=== PATIENT | male | born 1955 | race Caucasian/White ===

== ENCOUNTER 2016-12-17 11:51 | Inpatient (IN) | payer OTHER ==
[~2016-12-17] VITALS: Ht 188 cm; Wt 93.0 kg
[2016-12-17] MEDS ORDERED: ASPIRIN 325 MG TAB PO STA (12:28)
[2016-12-17] MEDS ORDERED: NITROGLYCERIN 2% 1 GM OINT PKT TD STA (12:28)
[2016-12-17] MEDS ORDERED: NITROGLYCERIN (SL) 0.4 MG TAB SL PRN (12:30)
--- NOTE | 2016-12-17 12:35 | ERA ---
ER Documentation Chief Complaint Date/Time DATE: 12/17/16 TIME: 12:32 Chief Complaint CP ONSET 1 HR RAD LEFT ARM HPI This is 61-year-old male who was working out on the elliptical after a 3 week hiatus this morning at around 10 AM. The patient states he had a bulletproof coffee at 9 AM which does not usually have, followed by about one third of a dose of her pre-workout formula but does contain a stimulant. He said he got an elliptical at level 1 low speed started having a tightness in his anterior left chest with some slight radiation to the left shoulder after about 10 minutes. He states he got off of the elliptical and the chest pressure relieved. He said he waited about 10 minutes and got on the elliptical again and the pressure returned once again. Probably got off of the machine and the pain persisted for about another 45 minutes to an hour. He says the pressure is nearly gone now. He had a little bit of shortness of breath no palpitations syncope dizziness. Patient is on testosterone therapy every 2 weeks by injection. His only medical problem he states is borderline hypertension ROS All systems reviewed and are negative except as per history of present illness. Medications Home Meds Reported Medications Indomethacin* (Indocin*) 25 Mg Capsule, 25 MG PO BID, CAP 12/17/16 Methocarbamol* (Methocarbamol*) 750 Mg Tablet, 750 MG PO BID Y for MUSCLE SPASMS , TAB 12/17/16 Allergies Allergies: Coded Allergies: No Known Allergy (Unverified , 12/17/16) PMhx/Soc History of Surgery: No Anesthesia Reaction: No Hx Neurological Disorder: No Hx Respiratory Disorders: No Hx Cardiac Disorders: No Hx Psychiatric Problems: No Hx Miscellaneous Medical Probl: Yes (HIGH CHOLESTEROL) Hx Alcohol Use: No Hx Substance Use: No Hx Tobacco Use: Yes Smoking Status: Current some day smoker FmHx Family History: No coronary disease Physical Exam Vitals Vital Signs Date Time Temp Pulse Resp B/P Pulse Ox O2 Delivery O2 Flow Rate FiO2 12/17/16 14:08 61 18 126/79 100 Room Air 2.0 12/17/16 12:54 Nasal Cannula 2 12/17/16 11:57 98.1 77 18 197/95 99 Physical Exam Const: Well-developed, well-nourished Head: Atraumatic, normocephalic Eyes: Normal Conjunctiva, PERRLA, EOMI, normal sclera, no nystagmus ENT: Normal External Ears, Nose and Mouth, moist mucus membranes. Neck: Full range of motion. No meningismus, no lymphadenopathy. Resp: Clear to auscultation bilaterally, no wheezing, rhonchi, rales Cardio: Regular rate and rhythm, no murmurs, S1 S2 present, no reproducible pain to palpation or twisting of the trunk Abd: Soft, non tender x 4, non distended. Normal bowel sounds, no guarding or rebound, no pulsitile abdominal masses or bruits Skin: No petechiae or rashes, no ecchymosis , no maculopapular rash Back: No midline or flank tenderness Ext: No cyanosis, or edema, FROM x 4, normal inspection, neurovascularly intact x 4 Neur: Awake and alert, STR 5/5 x 4, sensation intact x 4, no focal findings, cerebellum intact Psych: Normal Mood and Affect Result Diagram: 12/17/16 1230 12/17/16 1230 Results 24 hrs Laboratory Tests Test 12/17/16 12:30 White Blood Count 12.510^3/ul Red Blood Count 5.6510^6/ul Hemoglobin 17.5g/dl Hematocrit 51.6% Mean Corpuscular Volume 91.3fl Mean Corpuscular Hemoglobin 31.0pg Mean Corpuscular Hemoglobin Concent 33.9g/dl Red Cell Distribution Width 12.4% Platelet Count 68781^3/UL Mean Platelet Volume 10.2fl Neutrophils % 82.7% Lymphocytes % 9.0% Monocytes % 7.0% Eosinophils % 0.5% Basophils % 0.3% Nucleated Red Blood Cells % 0.0/100WBC Neutrophils # 10.410^3/ul Lymphocytes # 1.110^3/ul Monocytes # 0.910^3/ul Eosinophils # 0.110^3/ul Basophils # 0.010^3/ul Nucleated Red Blood Cells # 0.010^3/ul Prothrombin Time 12.9Sec Prothrombin Time Ratio 1.0 INR International Normalized Ratio 0.97 Activated Partial Thromboplast Time 29.2Sec Sodium Level 136mmol/L Potassium Level 4.6mmol/L Chloride Level 98mmol/L Carbon Dioxide Level 28mmol/L Anion Gap 15 Blood Urea Nitrogen 26mg/dl Creatinine 1.11mg/dl Glucose Level 100mg/dl Calcium Level 9.3mg/dl Total Bilirubin 0.3mg/dl Direct Bilirubin 0.00mg/dl Indirect Bilirubin 0.3mg/dl Aspartate Amino Transf (AST/SGOT) 28IU/L Alanine Aminotransferase (ALT/SGPT) 40IU/L Alkaline Phosphatase 84IU/L Troponin I < 0.012ng/ml Total Protein 7.3g/dl Albumin 4.7g/dl Globulin 2.60g/dl Albumin/Globulin Ratio 1.80 Current Medications Medications (Trade) Dose Ordered Sig/Rowan Route PRN Reason Start Time Stop Time Status Last Admin Dose Admin Aspirin (Aspirin) 325 mg ONCE STAT PO 12/17/16 12:28 12/17/16 12:30 DC 12/17/16 12:39 Nitroglycerin (Nitroglycerin 2% Oint) 1 inch ONCE STAT TD 12/17/16 12:28 12/17/16 12:30 DC 12/17/16 12:39 Nitroglycerin (Nitroglycerin (Sl Tab) 0.4 Mg) 1 tab Q5M UP TO 3 DOSES PRN SL CHEST PAIN 12/17/16 12:30 Procedures/MDM EKG: Rate/Rhythm: Normal Sinus Rhythm,NL intervals QRS, ST, QT: NORMAL [place], QRS, QT] Impression: NORMAL EKG Patient's chest pain could be cardiac in origin or could be from elevated blood pressure due to the coffee and pre-workout formula. Regardless we will admit the patient for cardiac workup. Patient's symptoms are concerning for cardiac cause will require inpatient workup and continuous monitoring. Further w/u for ischemia, arrhythmia, PE or dissection will be deferred to the inpatient team. PROCEDURE: XR Chest. CLINICAL INDICATION: Chest Pain. TECHNIQUE: Single frontal view of the chest was obtained COMPARISON: None FINDINGS: The heart and mediastinum are within normal limits. The lungs are clear. There is no pleural effusion or pneumothorax. The bones and soft tissue show no acute change. IMPRESSION: No definite abnormalities are identified. RPTAT:AAJJ Physician Ivone Date Time Electronically viewed and signed by Baron Guzman Physician on 12/17/2016 14: 08 MC/ CC: SOURAV MEI DO Accepting Care Team: Current data and ongoing care discussed. Time: Time of admission Primary Provider: [XOXOXO] Consulting: [XOXOXO] Outstanding Data: none Departure Diagnosis: Primary Impression: Chest pain Qualified Code: R07.9 - Chest pain, unspecified type Condition: Stable SOURAV MEI DO Dec 17, 2016 12:35
[2016-12-17] MEDS ORDERED: METH750T2 PO (13:02)
[2016-12-17] MEDS ORDERED: INDO25CA25 PO (13:03)
[2016-12-17 13:09] LABS: ADD SCAN DIFF NO
[2016-12-17 13:14] LABS: BASOPHILS % 0.3 % (0.0-2.0); EOSINOPHILS # 0.1 10^3/ul (0.0-0.5); EOSINOPHILS % 0.5 % (0.0-7.0); HEMATOCRIT 51.6 % (42.0-52.0); HEMOGLOBIN 17.5 g/dl (14.0-18.0); LYMPHOCYTES # 1.1 10^3/ul (0.8-2.9); MEAN CORPUSCULAR HGB CONC 33.9 g/dl (32.0-37.0); MEAN CORPUSCULAR VOLUME 91.3 fl (82.0-101.0); MEAN PLATELET VOLUME 10.2 fl (7.4-10.4); MONOCYTE # 0.9 10^3/ul (0.3-0.9); NEUTROPHIL # 10.4 10^3/ul (1.6-7.5); NEUTROPHILS % 82.7 % (39.0-77.0); PLATELET COUNT 229 10^3/UL (140-415); RED BLOOD COUNT 5.65 10^6/ul (4.70-6.10); RED CELL DISTRIBUTION WIDTH 12.4 % (11.5-14.5); WHITE BLOOD COUNT 12.5 10^3/ul (4.8-10.8)
[2016-12-17 13:29] LABS: INR 0.97; PROTIME 12.9 Sec (12.2-14.2)
[2016-12-17 13:30] LABS: PARTIAL THROMBOPLASTIN TIME 29.2 Sec (25.0-35.0)
[2016-12-17 13:34] LABS: ALANINE AMINOTRANSFERASE 40 IU/L (13-69); ALBUMIN 4.7 g/dl (3.3-4.9); ALKALINE PHOSPHATASE 84 IU/L (42-121); ANION GAP 15 (8-16); ASPARTATE AMINO TRANSFERASE 28 IU/L (15-46); BILIRUBIN,INDIRECT 0.3 mg/dl (0-1.1); BILIRUBIN,TOTAL 0.3 mg/dl (0.2-1.3); BLOOD UREA NITROGEN 26 mg/dl (7-20); CALCIUM 9.3 mg/dl (8.4-10.2); CARBON DIOXIDE 28 mmol/L (21-31); CHLORIDE 98 mmol/L (97-110); CREATININE 1.11 mg/dl (0.61-1.24); GLUCOSE 100 mg/dl (70-220); POTASSIUM 4.6 mmol/L (3.5-5.1); SODIUM 136 mmol/L (135-144); TOTAL PROTEIN 7.3 g/dl (6.1-8.1)
[2016-12-17 13:47] LABS: TROPONIN-I < 0.012 ng/ml (0.00-0.12)
--- NOTE | 2016-12-17 14:09 | RADRPT ---
PROCEDURE: XR Chest. CLINICAL INDICATION: Chest Pain. TECHNIQUE: Single frontal view of the chest was obtained COMPARISON: None FINDINGS: The heart and mediastinum are within normal limits. The lungs are clear. There is no pleural effusion or pneumothorax. The bones and soft tissue show no acute change. IMPRESSION: No definite abnormalities are identified. RPTAT:AAJJ Baron Guzman Physician Date Time Electronically viewed and signed by Baron Guzman Physician on 12/17/2016 14:08 /
[2016-12-17] MEDS ORDERED: ACETAMINOPHEN 325 MG TAB PO PRN ×2 (15:00→16:30)
[2016-12-17] MEDS ORDERED: ONDANSETRON 4 MG INJ IV PRN ×2 (15:00→16:30)
[2016-12-17] MEDS ORDERED: SOD CHLORIDE 0.9% 1,000 ML IV SCH (16:01)
--- NOTE | 2016-12-17 16:01 | HP ---
Date/Time of Note Date/Time of Note DATE: 12/17/16 TIME: 15:49 Assessment/Plan VTE Prophylaxis VTE Prophylaxis Intervention: LMWH Lines/Catheters IV Catheter Type (from Nrsg): Saline Lock Assessment/Plan Chief Complaint/Hosp Course A/P 1) Chest Pain; ro ACS vs musculoskeletal vs reflex. Stable, admit to tele. 2) iRBB; echo/ stress. 3) MV Prolapse 4) Htn? 5) Tobacco/ Marijuana 6) Leukocytosis. Problems: HPI/ROS Admit Date/Time Admit Date/Time Hx of Present Illness CP- pressure lt upper chest, non radiating while on exercise machine. was able to continue exercising, but pain returned later. denies any chest wall injury/ travel. no syncope, dyspnea, edema, diaphoresis, or recent fever. Has been deconditioned for 3wks due to back issues, and just today went back to the gym. had coffee for the 1st time in a while, and a protein supplement just before heading to the gym. given asa/ntg in er with some benefit. ER- htn elevated. sr; irbb, abn p waves? Cardiac risks - age, htn, ntg/ asa use/ abn ekg? ROS Constitutional: no complaints Eyes: no complaints ENT: no complaints Respiratory: no complaints Cardiovascular: chest pain Gastrointestinal: no complaints Genitourinary: no complaints Musculoskeletal: back pain (chronic) Skin: no complaints Neurologic: no complaints Endocrine: no complaints Psychological: no complaints PMH/Family/Social Past Medical History HTN? Back pain/ spondylosis Marijuana Diverticulitis w vesicular fistula MV Prolapse Past Surgical History P colectomy w fistula/ bladder repair Tonsillectomy Family History Significant Family History: no pertinent family hx (no cancer, stroke, CAD) Social History Alcohol Use: none Smoking Status: Current some day smoker (& marijuana) Exam/Review of Systems Vital Signs Vitals Vital Signs Date Time Temp Pulse Resp B/P Pulse Ox O2 Delivery O2 Flow Rate FiO2 12/17/16 15:38 60 16 120/65 100 Room Air 12/17/16 14:08 2.0 12/17/16 11:57 98.1 Labs Result Diagram: 12/17/16 1230 12/17/16 1230 EDEN HERNANDEZ MD Dec 17, 2016 16:00
[2016-12-17] MEDS ORDERED: NITROGLYCERIN 0.1 MG/HR PATCH TRANSDERM ONE (16:30)
[2016-12-17] MEDS ORDERED: OXYCODONE/ACETAMINOPHEN (5/325) TAB PO PRN (16:30)
[2016-12-17] MEDS ORDERED: NACL 0.9% 3 ML SYG IV SCH (16:30)
[2016-12-17] MEDS ORDERED: DOCUSATE SODIUM 100 MG CAP PO PRN (16:30)
[2016-12-17 17:35] VITALS: Ht 188 cm; Wt 93.0 kg
[2016-12-17 20:11] VITALS: BP 109/59; RESP 18
[2016-12-17 20:12] VITALS: PULSE 65
[2016-12-17] MEDS: FAMOTIDINE 20 MG TAB PO SCH (20:42)
[2016-12-17] MEDS: ENOXAPARIN 100 MG/ML SYG SC SCH (20:44)
[2016-12-17] MEDS ORDERED: ATORVASTATIN 80 MG TAB PO ONE (22:52)
[2016-12-17 23:58] VITALS: BP 109/62; RESP 17
[2016-12-18] VITALS (48 sets, daily range): BP systolic 89–191; BP diastolic 51–93; PULSE 50–106; RESP 7–22
[2016-12-18 07:30] LABS: ADD SCAN DIFF NO
[2016-12-18 07:33] LABS: BASOPHIL # 0.1 10^3/ul (0.0-0.1); BASOPHILS % 0.4 % (0.0-2.0); EOSINOPHILS # 0.1 10^3/ul (0.0-0.5); EOSINOPHILS % 1.1 % (0.0-7.0); HEMATOCRIT 50.1 % (42.0-52.0); HEMOGLOBIN 16.7 g/dl (14.0-18.0); LYMPHOCYTES # 1.6 10^3/ul (0.8-2.9); LYMPHOCYTES % 13.6 % (15.0-51.0); MEAN CORPUSCULAR HEMOGLOBIN 30.9 pg (29.0-33.0); MEAN CORPUSCULAR HGB CONC 33.3 g/dl (32.0-37.0); MEAN CORPUSCULAR VOLUME 92.8 fl (82.0-101.0); MEAN PLATELET VOLUME 10.3 fl (7.4-10.4); MONOCYTES % 8.9 % (0.0-11.0); NEUTROPHIL # 8.8 10^3/ul (1.6-7.5); NEUTROPHILS % 75.5 % (39.0-77.0); PLATELET COUNT 225 10^3/UL (140-415); RED CELL DISTRIBUTION WIDTH 13.1 % (11.5-14.5); WHITE BLOOD COUNT 11.7 10^3/ul (4.8-10.8)
[2016-12-18 07:47] LABS: ALBUMIN 4.4 g/dl (3.3-4.9); ALBUMIN/GLOBULIN RATIO 1.76; BILIRUBIN,INDIRECT 0.7 mg/dl (0-1.1); BILIRUBIN,TOTAL 0.7 mg/dl (0.2-1.3); CALCIUM 9.3 mg/dl (8.4-10.2); CHOL/HDL RATIO 4.3 RATIO; CREATININE 1.06 mg/dl (0.61-1.24); MAGNESIUM 2.1 mg/dl (1.7-2.5); POTASSIUM 4.3 mmol/L (3.5-5.1); TOTAL PROTEIN 6.9 g/dl (6.1-8.1)
[2016-12-18 07:59] LABS: CK-MB 5.97 ng/ml (0.0-2.4); TROPONIN-I 1.18 ng/ml (0.00-0.12)
[2016-12-18 08:17] LABS: THYROID STIMULATING HORMONE 3.16 MIU/L (0.465-4.680)
[2016-12-18] MEDS ORDERED: NICOTINE (14 MG/24 HR) PATCH TRANSDERM PRN (09:00)
[2016-12-18] MEDS: ASPIRIN (EC) 81 MG TAB PO SCH (09:25)
[2016-12-18] MEDS: FAMOTIDINE 20 MG TAB PO SCH ×2 (09:26→21:46)
[2016-12-18] MEDS: ENOXAPARIN 100 MG/ML SYG SC SCH (09:27)
--- NOTE | 2016-12-18 11:48 | RADRPT ---
Echocardiogram Report Patient Name: YOLANDA HUFFMAN Gender: Male Date: 1955 Study Date: 18-Dec-2016 Associate Sales Manager: Michelle Coronel [facility] Location: 5561 Ref. Physician: EDEN HERNANDEZ Quality: Good Procedures: Transthoracic echocardiogram with complete 2D, M-Mode, and doppler examination. Indications: Chest Pain, RBBB. 2D/M Mode Doppler Measurement Value Normal Ranges Measurement Value Normal Ranges LVIDd 2D 4.9 3.5 - 5.6 cm AV Peak Teo 1.4 m/sec LVIDs 2D 2.6 2.1 - 4.1 cm AV Peak PG 7.6 mmHg LVPWd 2D 0.9 0.6 - 1.1 cm LVOT Peak Teo 1.2 m/sec IVSd 2D 0.9 0.6 - 1.1 cm LVOT Peak PG 6.2 mmHg AoR Diam 2D 2.5 2.0 - 3.7 cm MV E Peak Teo 0.6 m/sec EDV 2D 113.6 cm3 MV A Peak Teo 0.8 m/sec ESV 2D 18.2 cm3 MV E/A 0.7 LA Dimen 2D 3.0 2.3 - 4.0 cm MV Decel Time 156 msec MV Decel Steele 4 MV E/A 0.7 TR Peak Teo 2.1 m/sec TR Peak PG 17.9 mmHg RVSP 26.0 mmHg Findings Left Ventricle: Normal left ventricular systolic function. Normal left ventricular cavity size. Normal left ventricular wall thickness. Ejection fraction is visually estimated at 60 %. Tissue Doppler/Mitral Doppler indices are consistent with impaired relaxation (Stage I diastolic dysfunction). Right Ventricle: Normal right ventricular size. Normal right ventricular systolic function. Left Atrium: The left atrium is normal in size. Right Atrium: The right atrium is normal in size. Mitral Valve: Mitral valve leaflets appear mildly thickened. Mild mitral annular calcification. Trace mitral regurgitation. Aortic Valve: Normal appearance of the aortic valve. No significant aortic stenosis or insufficiency. Tricuspid Valve: Normal appearance of the tricuspid valve. Estimated peak PA systolic pressure 26 mmHg. There is trace tricuspid regurgitation. Pulmonic Valve: Pulmonic valve not well visualized. Pericardium: Normal pericardium with no significant pericardial effusion. Aorta: Normal aortic root. IVC: Dilated IVC with respiratory collapse consistent with elevated right atrial pressure. Conclusions Normal left ventricular systolic function. Normal left ventricular cavity size. Normal left ventricular wall thickness. Ejection fraction is visually estimated at 60 %. Tissue Doppler/Mitral Doppler indices are consistent with impaired relaxation (Stage I diastolic dysfunction). Normal right ventricular size. Normal right ventricular systolic function. The left atrium is normal in size. The right atrium is normal in size. No significant valvular stenosis or regurgitation seen. Normal pericardium with no significant pericardial effusion. Electronically Signed By: Xavier Taylor 18-Dec-2016 11:47:39 -0700 Patient Name: YOLANDA HUFFMAN Study Date: 18-Dec-[id number]
--- NOTE | 2016-12-18 12:54 | CONS ---
Date/Time of Note Date/Time of Note DATE: 12/18/16 TIME: 12:50 Assessment/Plan Assessment/Plan Additional Assessment/Plan Non-ST elevation OK Preserved ejection fraction -Patient with elevated troponins and chest pain. Echocardiogram with preserved ejection fraction. Will proceed with cardiac catheterization. Continue aspirin and statin therapy, currently on anticoagulation. Consultation Date/Type/Reason Admit Date/Time Type of Consultation: cv Reason for Consultation Chest discomfort Hx of Present Illness This is a 61-year-old male who presents with chest discomfort occurred yesterday after exercising. Symptoms were exacerbated by his physical activity. Discomfort was pressure-like and continued post exercise. He is unsure if he felt shortness of breath. He denied any nausea. Once he came to the emergency room and given nitroglycerin and aspirin, his pain resolved. He has had no further chest discomfort since then. Denies any abdominal pain, nausea, dizziness or lightheadedness. 12 point review of systems was performed with all pertinent positives and negatives mentioned above and all else is negative Eyes: no complaints ENT: no complaints Respiratory: no complaints Cardiovascular: chest pain Gastrointestinal: no complaints Genitourinary: no complaints Musculoskeletal: back pain Skin: no complaints Neurologic: no complaints Psychological: no complaints Past Medical History Medical History: no pertinent history Past Surgical History Orthopedic surgery Bladder surgery Family History Significant Family History: no pertinent family hx Social History Alcohol Use: none Smoking Status: Never smoker Drug Use: marijuana Exam/Review of Systems Vital Signs Vitals Vital Signs Date Time Temp Pulse Resp B/P Pulse Ox O2 Delivery O2 Flow Rate FiO2 12/18/16 12:44 74 12/18/16 11:39 98.7 20 140/72 98 12/17/16 17:00 Room Air 12/17/16 14:08 2.0 Intake and Output 12/17/16 12/17/16 12/18/16 15:00 23:00 07:00 Intake Total 500 ml 810 ml Balance 500 ml 810 ml Exam No apparent distress Constitutional: alert, oriented, well developed Head: normocephalic Neck: supple Respiratory: clear to auscultation, normal air movement Cardiovascular: other (S1-S2 heard, no murmurs appreciated), regular rate and rhythm Gastrointestinal: bowel sounds, non-tender, other (No guarding), soft Extremities: other (No edema) Results Result Diagram: 12/18/16 0658 12/18/16 0640 Results 24 hrs Laboratory Tests Test 12/17/16 19:50 12/18/16 06:40 12/18/16 06:58 Troponin I 1.120 *H 1.180 *H Lipase 104 Sodium Level 141 Potassium Level 4.3 Chloride Level 98 Carbon Dioxide Level 32 H Anion Gap 15 Blood Urea Nitrogen 19 Creatinine 1.06 Glucose Level 99 Hemoglobin A1c 5.7 Calcium Level 9.3 Phosphorus Level 3.0 Magnesium Level 2.1 Total Bilirubin 0.7 Direct Bilirubin 0.00 Indirect Bilirubin 0.7 Aspartate Amino Transf (AST/SGOT) 36 Alanine Aminotransferase (ALT/SGPT) 36 Alkaline Phosphatase 72 Creatine Kinase 104 Creatine Kinase Index 5.7 Creatinine Kinase MB (Mass) 5.97 H Total Protein 6.9 Albumin 4.4 Globulin 2.50 Albumin/Globulin Ratio 1.76 Triglycerides Level 90 Cholesterol Level 162 LDL Cholesterol, Calculated 107 HDL Cholesterol 37 Cholesterol/HDL Ratio 4.3 Thyroid Stimulating Hormone (TSH) 3.160 White Blood Count 11.7 H Red Blood Count 5.40 Hemoglobin 16.7 Hematocrit 50.1 Mean Corpuscular Volume 92.8 Mean Corpuscular Hemoglobin 30.9 Mean Corpuscular Hemoglobin Concent 33.3 Red Cell Distribution Width 13.1 Platelet Count 225 Mean Platelet Volume 10.3 Neutrophils % 75.5 Lymphocytes % 13.6 L Monocytes % 8.9 Eosinophils % 1.1 Basophils % 0.4 Nucleated Red Blood Cells % 0.0 Neutrophils # 8.8 H Lymphocytes # 1.6 Monocytes # 1.0 H Eosinophils # 0.1 Basophils # 0.1 Nucleated Red Blood Cells # 0.0 Medications Medications Current Medications Sodium Chloride (NS) 1,000 ml @ 50 mls/hr Q20H IV Last administered on t 20:48; Admin Dose 50 MLS/HR; Start 12/17/16 at 16:01 Ondansetron HCl (Zofran Inj) 4 mg Q6H PRN IV NAUSEA AND/OR VOMITING; Start 12/17 at 16:30 Acetaminophen (Tylenol Tab) 650 mg Q6H PRN PO PAIN LEVEL 1-3 OR FEVER; Start at 16:30 Oxycodone/ Acetaminophen (Percocet (5/ 325)) 1 tab Q6H PRN PO MODERATE PAIN LEVEL 4-6; Start 12/17/16 at 16:30 Morphine Sulfate (morphine) 2 mg Q4H PRN IV SEVERE PAIN LEVEL 7-10; Start at 16:30 Docusate Sodium (Colace) 100 mg Q12H PRN PO CONSTIPATION; Start 12/17/16 at 16: 30 Zolpidem Tartrate (Ambien) 5 mg QHS PRN PO SLEEP; Start 12/17/16 at 16:30 Famotidine (Pepcid) 20 mg Q12 PO Last administered on 12/18/16 09:26; Admin Dose 20 MG; Start 12/17/16 at 21:00 Enoxaparin Sodium (Lovenox) 90 mg BID SC Last administered on 12/18/16 09:27; Admin Dose 90 MG; Start 12/17/16 at 21:00 Aspirin (Halfprin) 81 mg DAILY PO Last administered on 12/18/16 09:25; Admin Dose 81 MG; Start 12/18/16 at 09:00 Nicotine (Nicoderm 14 Mg/ 24hr) 1 patch PRN PRN TRANSDERM CONTROL WITHDRAWAL SYMPTOMS; Start 12/18/16 at 09:00 Atorvastatin Calcium (Lipitor) 80 mg HS PO ; Start 12/18/16 at 21:00 Procedures Procedures ECG done yesterday demonstrates sinus rhythm at 62 bpm, QRS 102 ms, nonspecific ST abnormalities Xavier Taylor DO Dec 18, 2016 12:53
--- NOTE | 2016-12-18 13:15 | PN ---
Date/Time of Note Date/Time of Note DATE: 12/18/16 TIME: 13:03 Assessment/Plan VTE Prophylaxis VTE Prophylaxis Intervention: heparin Lines/Catheters IV Catheter Type (from Nrs): Saline Lock Urinary Cath still in place: No Assessment/Plan Assessment/Plan 1. NSTEMI 2. Tobacco/ Marijuana user 3. abn EKG 4. Leukocytosis : resctive 2/2 #1 PLAN: Cardiac angiogram today continue supportive care Subjective 24 Hr Interval Summary Free Text/Dictation stable, angiogram today Exam/Review of Systems Vital Signs Vitals Vital Signs Date Time Temp Pulse Resp B/P Pulse Ox O2 Delivery O2 Flow Rate FiO2 12/18/16 12:44 74 12/18/16 11:39 98.7 20 140/72 98 12/17/16 17:00 Room Air 12/17/16 14:08 2.0 Intake and Output 12/17/16 12/17/16 12/18/16 15:00 23:00 07:00 Intake Total 500 ml 810 ml Balance 500 ml 810 ml Exam No apparent distress Constitutional: alert, oriented, well developed Head: normocephalic Neck: supple Respiratory: clear to auscultation, normal air movement Cardiovascular: other (S1-S2 heard, no murmurs appreciated), regular rate and rhythm Gastrointestinal: bowel sounds, non-tender, other (No guarding), soft Extremities: other (No edema) Results Result Diagram: 12/18/16 0658 12/18/16 0640 Results 24 hrs Laboratory Tests Test 12/17/16 19:50 12/18/16 06:40 12/18/16 06:58 Troponin I 1.120 *H 1.180 *H Lipase 104 Sodium Level 141 Potassium Level 4.3 Chloride Level 98 Carbon Dioxide Level 32 H Anion Gap 15 Blood Urea Nitrogen 19 Creatinine 1.06 Glucose Level 99 Hemoglobin A1c 5.7 Calcium Level 9.3 Phosphorus Level 3.0 Magnesium Level 2.1 Total Bilirubin 0.7 Direct Bilirubin 0.00 Indirect Bilirubin 0.7 Aspartate Amino Transf (AST/SGOT) 36 Alanine Aminotransferase (ALT/SGPT) 36 Alkaline Phosphatase 72 Creatine Kinase 104 Creatine Kinase Index 5.7 Creatinine Kinase MB (Mass) 5.97 H Total Protein 6.9 Albumin 4.4 Globulin 2.50 Albumin/Globulin Ratio 1.76 Triglycerides Level 90 Cholesterol Level 162 LDL Cholesterol, Calculated 107 HDL Cholesterol 37 Cholesterol/HDL Ratio 4.3 Thyroid Stimulating Hormone (TSH) 3.160 White Blood Count 11.7 H Red Blood Count 5.40 Hemoglobin 16.7 Hematocrit 50.1 Mean Corpuscular Volume 92.8 Mean Corpuscular Hemoglobin 30.9 Mean Corpuscular Hemoglobin Concent 33.3 Red Cell Distribution Width 13.1 Platelet Count 225 Mean Platelet Volume 10.3 Neutrophils % 75.5 Lymphocytes % 13.6 L Monocytes % 8.9 Eosinophils % 1.1 Basophils % 0.4 Nucleated Red Blood Cells % 0.0 Neutrophils # 8.8 H Lymphocytes # 1.6 Monocytes # 1.0 H Eosinophils # 0.1 Basophils # 0.1 Nucleated Red Blood Cells # 0.0 Medications Medications Current Medications Sodium Chloride (NS) 1,000 ml @ 50 mls/hr Q20H IV Last administered on 20:48; Admin Dose 50 MLS/HR; Start 12/17/16 at 16:01 Ondansetron HCl (Zofran Inj) 4 mg Q6H PRN IV NAUSEA AND/OR VOMITING; Start 12/17 at 16:30 Acetaminophen (Tylenol Tab) 650 mg Q6H PRN PO PAIN LEVEL 1-3 OR FEVER; Start at 16:30 Oxycodone/ Acetaminophen (Percocet (5/ 325)) 1 tab Q6H PRN PO MODERATE PAIN LEVEL 4-6; Start 12/17/16 at 16:30 Morphine Sulfate (morphine) 2 mg Q4H PRN IV SEVERE PAIN LEVEL 7-10; Start at 16:30 Docusate Sodium (Colace) 100 mg Q12H PRN PO CONSTIPATION; Start 12/17/16 at 16: 30 Zolpidem Tartrate (Ambien) 5 mg QHS PRN PO SLEEP; Start 12/17/16 at 16:30 Famotidine (Pepcid) 20 mg Q12 PO Last administered on 12/18/16 09:26; Admin Dose 20 MG; Start 12/17/16 at 21:00 Enoxaparin Sodium (Lovenox) 90 mg BID SC Last administered on 12/18/16 09:27; Admin Dose 90 MG; Start 12/17/16 at 21:00 Aspirin (Halfprin) 81 mg DAILY PO Last administered on 7/10/17at 09:25; Admin Dose 81 MG; Start 12/18/16 at 09:00 Nicotine (Nicoderm 14 Mg/ 24hr) 1 patch PRN PRN TRANSDERM CONTROL WITHDRAWAL SYMPTOMS; Start 12/18/16 at 09:00 Atorvastatin Calcium (Lipitor) 80 mg HS PO ; Start 12/18/16 at 21:00 ALBA CHAVIRA Dec 18, 2016 13:13
[2016-12-18] MEDS ORDERED: LIDOCAINE 1% (MDV) 20 ML INJ ONE (14:24)
[2016-12-18] MEDS ORDERED: IODIXANOL LOCM 100 ML BTL ONE ×3 (14:24→15:50)
[2016-12-18] MEDS ORDERED: VERAPAMIL 5 MG INJ ONE (14:25)
[2016-12-18] MEDS ORDERED: HEPARIN 1000 UNITS/ML 10 ML INJ ONE (14:25)
[2016-12-18] MEDS ORDERED: NITROGLYCERIN (IC) 100 MCG/ML INJ ONE (14:25)
[2016-12-18] MEDS ORDERED: MIDAZOLAM 1 MG/ML 2 ML INJ ONE ×2 (14:45→15:45)
[2016-12-18] MEDS ORDERED: FENTAnyl 50 MCG/ML VIAL ONE (14:46)
[2016-12-18] MEDS ORDERED: SOD CHLORIDE 0.9% 500 ML ONE (15:06)
[2016-12-18] MEDS ORDERED: BIVALIRUDIN 250MG /NS 50 ML 50 ML IVPB ONE (15:23)
[2016-12-18] MEDS ORDERED: TICAGRELOR 90 MG TABLET ONE (15:24)
[2016-12-18] MEDS ORDERED: IODIXANOL LOCM 50 ML BTL ONE (15:34)
[2016-12-18] MEDS ORDERED: hydrALAzine 20 MG INJ ONE (15:51)
[2016-12-18] MEDS ORDERED: SOD CHLORIDE 0.9% 1,000 ML IV SCH (16:18)
--- NOTE | 2016-12-18 16:18 | OPR ---
Date/Time of Note Date/Time of Note DATE: 12/18/16 TIME: 16:11 Operative Report Procedure Date: Dec 18, 2016 Preoperative Diagnosis Myocardial infarction Postoperative Diagnosis Obstructive coronary artery disease Operation Performed Left heart catheterization Right and left coronary angiogram Interpretation and supervision of right left coronary angiogram Left ventricular pressure measurements PCI of the obtuse marginal with the placement of a 2.75 x 28 mm Synergy drug- eluting stent, postdilated to 3.1 mm Conscious sedation Right radial artery approach Estimated Blood Loss: minimal Complications: None Operative\Procedure Findings Hemodynamics LV pressure 178 with EDP of 20 Aortic blood pressure 183/87 Left main is a large caliber vessel with no significant disease. Circumflex a medium to large caliber vessel and codominant with a medium caliber first obtuse marginal with no significant disease, OM 2 and on 3 are small caliber vessels with no significant disease, OM 3 is a medium caliber vessel with ostial to mid diffuse stenosis worse being 90%, the AV groove circumflex with no significant disease. LAD is a medium caliber vessel with a mid 30% stenosis at the bifurcation of the diagonal RCA is a medium caliber vessel with proximal 20% stenosis and distal 20% stenosis. Procedure Description The patient was brought to the Director Of Program Management after informed consent. Right radial access was obtained. A 5/6 Niuean sheath was placed in the right radial artery. A 6 Niuean [place] catheter was used to engage the left main and angiogram was performed. We were unable to engage the RCA so we switched out for a Tyler right 6 Niuean catheter. We onto the left ventricle and pressure measurements were obtained as well as pullback. Next engage the RCA and antrum was performed. There is severe stenosis noted in the obtuse marginal so we proceeded with intervention within the same setting. Angiomax was used for anticoagulation. With significant difficulty, the lesion in the fourth obtuse marginal was crossed with a run through wire. The area was predilated and stented with a 2.75 x 28 mm Synergy drug-eluting stent. This was postdilated with a 3.0 noncompliant balloon at high pressure. There was an excellent angiographic result with VEE-3 flow with no evidence of dissection with less than 10% residual stenosis. Patient was chest pain-free by the end of the procedure. Xavier Taylor DO Dec 18, 2016 16:18
[2016-12-18] MEDS ORDERED: hydrALAzine 20 MG INJ IV PRN (16:30)
[2016-12-18] MEDS ORDERED: AL HYDROX/MG HYDROX/SIMETH 30 ML CUP PO PRN (16:30)
[2016-12-18] MEDS ORDERED: ONDANSETRON 4 MG INJ IV PRN (16:30)
[2016-12-18] MEDS: morphine 2 MG INJ IV PRN ×2 (17:50→21:59)
[2016-12-18] MEDS ORDERED: NITROGLYCERIN (SL) 0.4 MG TAB ONE (18:23)
[2016-12-18] MEDS ORDERED: LABETALOL HCL 20MG INJ ONE (18:24)
[2016-12-18] MEDS ORDERED: hydrALAzine 20 MG INJ IV ONE ×2 (18:30)
[2016-12-18] MEDS ORDERED: LABETALOL HCL 20MG INJ IV ONE (18:30)
[2016-12-18] MEDS ORDERED: NITROGLYCERIN (SL) 0.4 MG TAB SL PRN (18:30)
--- NOTE | 2016-12-18 18:53 | EN ---
Date/Time of Note Date/Time of Note DATE: 12/18/16 TIME: 18:51 Event Note Cardiology Cardiology Event Note Called to PACU because patient with hypertension and chest pain. Patient evaluated, systolic blood pressure approximately 180s complaining of chest pain. ECG with lateral ST segment depressions. Patient given labetalol IV 20 mg and nitroglycerin sublingual 1 dose. Systolic blood pressure improved to 108 with resolution of chest pain. Xavier Taylor DO Dec 18, 2016 18:53
[2016-12-18] MEDS ORDERED: LABETALOL HCL 20MG INJ IV PRN (19:00)
[2016-12-18] MEDS: ATORVASTATIN 80 MG TAB PO SCH (21:46)
[2016-12-18] MEDS: LISINOPRIL 5 MG TAB PO SCH (21:46)
[2016-12-18] MEDS: ZOLPIDEM 5 MG TAB PO PRN (21:47)
[2016-12-18] MEDS: TICAGRELOR 90 MG TABLET PO SCH (21:49)
[2016-12-18 22:25] LABS: CK-MB 3.86 ng/ml (0.0-2.4)
[2016-12-19] VITALS (19 sets, daily range): BP systolic 117–157; BP diastolic 58–89; PULSE 76–97; RESP 6–20
[2016-12-19 05:38] LABS: ADD SCAN DIFF NO
[2016-12-19 05:51] LABS: BASOPHILS % 0.3 % (0.0-2.0); EOSINOPHILS % 0.2 % (0.0-7.0); HEMATOCRIT 52.3 % (42.0-52.0); HEMOGLOBIN 17.5 g/dl (14.0-18.0); LYMPHOCYTES % 7.6 % (15.0-51.0); MEAN CORPUSCULAR HEMOGLOBIN 30.6 pg (29.0-33.0); MEAN CORPUSCULAR HGB CONC 33.5 g/dl (32.0-37.0); MEAN CORPUSCULAR VOLUME 91.4 fl (82.0-101.0); MEAN PLATELET VOLUME 10.3 fl (7.4-10.4); MONOCYTE # 1.3 10^3/ul (0.3-0.9); MONOCYTES % 9.8 % (0.0-11.0); NEUTROPHIL # 10.8 10^3/ul (1.6-7.5); NEUTROPHILS % 81.7 % (39.0-77.0); PLATELET COUNT 261 10^3/UL (140-415); RED BLOOD COUNT 5.72 10^6/ul (4.70-6.10); RED CELL DISTRIBUTION WIDTH 13.2 % (11.5-14.5); WHITE BLOOD COUNT 13.2 10^3/ul (4.8-10.8)
[2016-12-19 06:06] LABS: CREATININE 0.92 mg/dl (0.61-1.24); POTASSIUM 3.7 mmol/L (3.5-5.1)
[2016-12-19 06:19] LABS: CK-MB 8.46 ng/ml (0.0-2.4)
[2016-12-19] MEDS: FAMOTIDINE 20 MG TAB PO SCH ×2 (09:17→20:55)
[2016-12-19] MEDS: ASPIRIN (EC) 81 MG TAB PO SCH (09:18)
[2016-12-19] MEDS: LISINOPRIL 5 MG TAB PO SCH ×2 (09:18→20:55)
[2016-12-19] MEDS: TICAGRELOR 90 MG TABLET PO SCH ×2 (09:19→21:08)
--- NOTE | 2016-12-19 11:15 | PN ---
Date/Time of Note Date/Time of Note DATE: 12/19/16 TIME: 11:12 Assessment/Plan VTE Prophylaxis VTE Prophylaxis Intervention: other Lines/Catheters IV C[facility]ter Type (from [facility] Peripheral IV Urinary Cath still in place: No Assessment/Plan Chief Complaint/Hosp Course Assessment/Plan 1. NSTEMI Status post left heart catheterization and PCI in the circumflex artery Continue aspirin, Brilinta, statin and Coreg 2. Marijuana user For insomnia 3. Dyslipidemia Continue statin, goal of LDL is less than 75 secondary to acute coronary syndrome 4. Leukocytosis : resctive 2/2 #1 5. Essential hypertension: Well-controlled on medical management Disposition: Transferred to telemetry floor, plan to discharge home tomorrow Problems: Subjective 24 Hr Interval Summary Free Text/Dictation Patient denies of any chest pain or shortness of breath Tolerating oral intake Ambulating without any difficulty Vitals are stable Exam/Review of Systems Vital Signs Vitals Vital Signs Date Time Temp Pulse Resp B/P Pulse Ox O2 Delivery O2 Flow Rate FiO2 12/19/16 08:00 78 12/19/16 06:00 13 135/82 98 Nasal Cannula 2.0 12/19/16 05:00 98.5 Intake and Output 12/18/16 12/18/16 12/19/16 15:00 23:00 07:00 Intake Total 800 ml 525 ml Output Total 600 ml Balance 200 ml 525 ml Exam General: The patient is well-developed, Not in acute distress. HEENT: Atraumatic, normocephalic. The pupils are equal and round . Neck: Supple with full range of motion. Chest: Normal expansion of the thorax during inspiration Lungs: Clear to auscultation bilaterally Heart: Normal S1-S2, Regular rhythm and rate. Abdomen: Soft , nontender, nondistended , bowel sounds are present. Extremities: Normal to inspection, no edema no cyanosis Neurologic: Normal mental status,The patient is awake, alert and oriented . Results Result Diagram: 12/19/16 0450 12/19/16 045 Results 24 hrs Laboratory Tests Test 12/18/16 21:36 12/19/16 04:50 Creatine Kinase 82 101 Creatinine Kinase MB (Mass) 3.86 H 8.46 H White Blood Count 13.2 H Red Blood Count 5.72 Hemoglobin 17.5 Hematocrit 52.3 H Mean Corpuscular Volume 91.4 Mean Corpuscular Hemoglobin 30.6 Mean Corpuscular Hemoglobin Concent 33.5 Red Cell Distribution Width 13.2 Platelet Count 261 Mean Platelet Volume 10.3 Neutrophils % 81.7 H Lymphocytes % 7.6 L Monocytes % 9.8 Eosinophils % 0.2 Basophils % 0.3 Nucleated Red Blood Cells % 0.0 Neutrophils # 10.8 H Lymphocytes # 1.0 Monocytes # 1.3 H Eosinophils # 0.0 Basophils # 0.0 Nucleated Red Blood Cells # 0.0 Sodium Level 138 Potassium Level 3.7 Chloride Level 103 Carbon Dioxide Level 25 Anion Gap 14 Blood Urea Nitrogen 14 Creatinine 0.92 Glucose Level 102 Calcium Level 9.0 Medications Medications Current Medications Acetaminophen (Tylenol Tab) 650 mg Q6H PRN PO PAIN LEVEL 1-3 OR FEVER; Start at 16:30 Oxycodone/ Acetaminophen (Percocet (5/ 325)) 1 tab Q6H PRN PO MODERATE PAIN LEVEL 4-6; Start 12/17/16 at 16:30 Morphine Sulfate (morphine) 2 mg Q4H PRN IV SEVERE PAIN LEVEL 7-10 Last administered on 12/18/16 17:50; Admin Dose 2 MG; Start 12/17/16 at 16:30 Docusate Sodium (Colace) 100 mg Q12H PRN PO CONSTIPATION; Start 12/17/16 at 16: 30 Zolpidem Tartrate (Ambien) 5 mg QHS PRN PO SLEEP Last administered on 21:47; Admin Dose 5 MG; Start 12/17/16 at 16:30 Famotidine (Pepcid) 20 mg Q12 PO Last administered on 12/19/16 09:17; Admin Dose 20 MG; Start 12/17/16 at 21:00 Aspirin (Halfprin) 81 mg DAILY PO Last administered on 12/19/16 09:18; Admin Dose 81 MG; Start 12/18/16 at 09:00 Atorvastatin Calcium (Lipitor) 80 mg HS PO Last administered on 12/18/16 21:46 ; Admin Dose 80 MG; Start 12/18/16 at 21:00 Ticagrelor (Brilinta) 90 mg BID PO Last administered on 12/19/16 09:19; Admin Dose 90 MG; Start 12/18/16 at 21:00 Al Hydrox/Mg Hydrox/Simethicone (Mag-Al Plus) 30 ml Q4H PRN PO GASTROINTESTINAL UPSET; Start 12/18/16 at 16:30 Ondansetron HCl (Zofran Inj) 4 mg Q4H PRN IV NAUSEA AND/OR VOMITING; Start 03/27 at 16:30 Nitroglycerin (Nitroglycerin (Sl Tab) 0.4 Mg) 1 tab Q5M PRN SL ANGINA Last administered on 12/18/16 18:47; Admin Dose 1 TAB; Start 12/18/16 at 18:30 Carvedilol (Coreg) 6.25 mg BID PO Last administered on 12/19/16 09:18; Admin Dose 6.25 MG; Start 12/18/16 at 21:00 Lisinopril (Zestril) 5 mg BID PO Last administered on 12/19/16 09:18; Admin Dose 5 MG; Start 12/18/16 at 21:00 Labetalol HCl (Labetalol) 10 mg Q6H PRN IV sbp>150; Start 12/18/16 at 19:00 GEORGE TREJO MD Dec 19, 2016 11:15
--- NOTE | 2016-12-19 15:50 | CONS ---
Date/Time of Note Date/Time of Note DATE: 12/19/16 TIME: 15:46 Assessment/Plan Assessment/Plan Additional Assessment/Plan Non-ST elevation [place] status post PCI with drug-eluting stenting to obtuse marginal Preserved ejection fraction Hypertension -Patient with no further chest pain since blood pressure control. Ejection fraction is preserved. Will switch Coreg to Lopressor, continue ZEB inhibitor, dual antiplatelet therapy and statin therapy. Extensive discussion had with patient regarding importance of compliance with dual antiplatelet therapy and requests of case management involvement to confirm insurance approval of Brilinta. Consultation Date/Type/Reason Admit Date/Time Dec 18, 2016 at 12:40 Initial Consult Date Type of Consultation: cv 24 HR Interval Summary Free Text/Dictation Patient feeling better, no further chest pain, shortness of breath. Ambulating the hallways with no complaints Exam/Review of Systems Vital Signs Vitals Vital Signs Date Time Temp Pulse Resp B/P Pulse Ox O2 Delivery O2 Flow Rate FiO2 12/19/16 12:05 97.6 97 18 117/73 97 Room Air 12/19/16 06:00 2.0 Intake and Output 12/18/16 12/18/16 12/19/16 15:00 23:00 07:00 Intake Total 800 ml 525 ml Output Total 600 ml Balance 200 ml 525 ml Exam No apparent distress Constitutional: alert, oriented Head: normocephalic Respiratory: other (Coarse breath sounds bilaterally, no wheezing) Cardiovascular: other (S1-S2 heard), regular rate and rhythm Gastrointestinal: bowel sounds, non-tender, soft Extremities: other (No edema, right wrist with +2 radial artery pulse, no hematoma) Results Result Diagram: 12/19/16 0450 12/19/16 0450 Results 24 hrs Laboratory Tests Test 12/18/16 21:36 12/19/16 04:50 Creatine Kinase 82 101 Creatinine Kinase MB (Mass) 3.86 H 8.46 H White Blood Count 13.2 H Red Blood Count 5.72 Hemoglobin 17.5 Hematocrit 52.3 H Mean Corpuscular Volume 91.4 Mean Corpuscular Hemoglobin 30.6 Mean Corpuscular Hemoglobin Concent 33.5 Red Cell Distribution Width 13.2 Platelet Count 261 Mean Platelet Volume 10.3 Neutrophils % 81.7 H Lymphocytes % 7.6 L Monocytes % 9.8 Eosinophils % 0.2 Basophils % 0.3 Nucleated Red Blood Cells % 0.0 Neutrophils # 10.8 H Lymphocytes # 1.0 Monocytes # 1.3 H Eosinophils # 0.0 Basophils # 0.0 Nucleated Red Blood Cells # 0.0 Sodium Level 138 Potassium Level 3.7 Chloride Level 103 Carbon Dioxide Level 25 Anion Gap 14 Blood Urea Nitrogen 14 Creatinine 0.92 Glucose Level 102 Calcium Level 9.0 Medications Medications Current Medications Acetaminophen (Tylenol Tab) 650 mg Q6H PRN PO PAIN LEVEL 1-3 OR FEVER; Start at 16:30 Oxycodone/ Acetaminophen (Percocet (5/ 325)) 1 tab Q6H PRN PO MODERATE PAIN LEVEL 4-6; Start 12/17/16 at 16:30 Morphine Sulfate (morphine) 2 mg Q4H PRN IV SEVERE PAIN LEVEL 7-10 Last administered on 12/18/16 17:50; Admin Dose 2 MG; Start 12/17/16 at 16:30 Docusate Sodium (Colace) 100 mg Q12H PRN PO CONSTIPATION; Start 12/17/16 at 16: 30 Zolpidem Tartrate (Ambien) 5 mg QHS PRN PO SLEEP Last administered on 21:47; Admin Dose 5 MG; Start 12/17/16 at 16:30 Famotidine (Pepcid) 20 mg Q12 PO Last administered on 12/19/16 09:17; Admin Dose 20 MG; Start 12/17/16 at 21:00 Aspirin (Halfprin) 81 mg DAILY PO Last administered on 12/19/16 09:18; Admin Dose 81 MG; Start 12/18/16 at 09:00 Atorvastatin Calcium (Lipitor) 80 mg HS PO Last administered on 12/18/16 21:46 ; Admin Dose 80 MG; Start 12/18/16 at 21:00 Ticagrelor (Brilinta) 90 mg BID PO Last administered on 12/19/16 09:19; Admin Dose 90 MG; Start 12/18/16 at 21:00 Al Hydrox/Mg Hydrox/Simethicone (Mag-Al Plus) 30 ml Q4H PRN PO GASTROINTESTINAL UPSET; Start 12/18/16 at 16:30 Ondansetron HCl (Zofran Inj) 4 mg Q4H PRN IV NAUSEA AND/OR VOMITING; Start 03/27 at 16:30 Nitroglycerin (Nitroglycerin (Sl Tab) 0.4 Mg) 1 tab Q5M PRN SL ANGINA Last administered on 12/18/16 18:47; Admin Dose 1 TAB; Start 12/18/16 at 18:30 Lisinopril (Zestril) 5 mg BID PO Last administered on 12/19/16 09:18; Admin Dose 5 MG; Start 12/18/16 at 21:00 Labetalol HCl (Labetalol) 10 mg Q6H PRN IV sbp>150; Start 12/18/16 at 19:00 Metoprolol Tartrate (Lopressor) 25 mg BID PO ; Start 12/19/16 at 21:00; Status Xavier Haskins DO Dec 19, 2016 15:50
[2016-12-19 16:29] LABS: CK-MB 6.13 ng/ml (0.0-2.4)
--- NOTE | 2016-12-19 17:14 | RADRPT ---
Vent Rate: 70 bpm RR Interval: [address] Interval: 138 msec QRS Duration: 102 msec QT Interval: 398 msec QTC Interval: 429 msec P-R-T [place]: 71 - 51 - 66 degrees Sinus rhythm with premature atrial complexes Otherwise normal ECG Electronically Signed By: Xavier Taylor [id number]
--- NOTE | 2016-12-19 17:15 | RADRPT ---
Vent Rate: 103 bpm RR Interval: 0 msec IN Interval: 132 msec QRS Duration: 98 msec QT Interval: 354 msec QTC Interval: 463 msec P-R-T [place]: 74 - 1 - 67 degrees Sinus tachycardia Possible Left atrial enlargement Incomplete right bundle branch block Nonspecific ST abnormality Abnormal ECG Electronically Signed By: Xavier Taylor [id number]
--- NOTE | 2016-12-19 17:18 | RADRPT ---
Vent Rate: 79 bpm RR Interval: 0 msec [place] Interval: 140 msec QRS Duration: 94 msec QT Interval: 386 msec QTC Interval: 442 msec P-R-T [place]: 75 - 55 - 58 degrees Normal sinus rhythm Normal ECG Electronically Signed By: Xavier Taylor [id number]
[2016-12-19] MEDS: ATORVASTATIN 80 MG TAB PO SCH (20:54)
[2016-12-19] MEDS: METOPROLOL 25 MG TAB PO SCH (20:55)
[2016-12-19] MEDS: ZOLPIDEM 5 MG TAB PO PRN (21:01)
[2016-12-20] VITALS (7 sets, daily range): BP systolic 115–127; BP diastolic 65–77; PULSE 59–76; RESP 18–20
[2016-12-20] MEDS: ASPIRIN (EC) 81 MG TAB PO SCH (08:45)
[2016-12-20] MEDS: METOPROLOL 25 MG TAB PO SCH (08:46)
[2016-12-20] MEDS: TICAGRELOR 90 MG TABLET PO SCH (08:46)
[2016-12-20] MEDS: FAMOTIDINE 20 MG TAB PO SCH (08:46)
[2016-12-20] MEDS: LISINOPRIL 5 MG TAB PO SCH (08:46)
--- NOTE | 2016-12-20 11:12 | CONS ---
Date/Time of Note Date/Time of Note DATE: 12/20/16 TIME: 11:09 Assessment/Plan Assessment/Plan Additional Assessment/Plan Non-ST elevation [place] status post PCI with drug-eluting stenting to obtuse marginal Preserved ejection fraction Hypertension -Patient doing well status post [place]. Would continue aspirin and Brilinta therapy for minimum of 1 year to maintain stent patency. Lipitor 40 mg nightly , Toprol-XL 25 mg daily and lisinopril 5 mg daily as blood pressure tolerates. Extensive discussion had with patient and at bedside regarding medications and importance of compliance and risk factor modification. DC planning Consultation Date/Type/Reason Admit Date/Time Dec 18, 2016 at 12:40 Type of Consultation: cv 24 HR Interval Summary Free Text/Dictation Patient denies further chest pain or shortness of breath. Feeling better, ambulating the hallways with no complaints Exam/Review of Systems Vital Signs Vitals Vital Signs Date Time Temp Pulse Resp B/P Pulse Ox O2 Delivery O2 Flow Rate FiO2 12/20/16 08:46 65 12/20/16 07:56 97.8 18 115/65 99 12/20/16 05:00 Room Air 12/19/16 06:00 2.0 Intake and Output 12/19/16 12/19/16 12/20/16 15:00 23:00 07:00 Intake Total 665 ml 200 ml 420 ml Output Total 425 ml 400 ml Balance 240 ml -200 ml 420 ml Exam No apparent distress Constitutional: alert, oriented Head: normocephalic Neck: supple Respiratory: clear to auscultation, normal air movement, other Cardiovascular: other (S1-S2 heard), regular rate and rhythm Gastrointestinal: bowel sounds, non-tender, soft Extremities: other (No edema) Results Result Diagram: 12/19/160 12/19/16 045 Results 24 hrs Laboratory Tests Test 12/19/16 15:30 Creatine Kinase 116 Creatinine Kinase MB (Mass) 6.13 H Medications Medications Current Medications Acetaminophen (Tylenol Tab) 650 mg Q6H PRN PO PAIN LEVEL 1-3 OR FEVER; Start at 16:30 Oxycodone/ Acetaminophen (Percocet (5/ 325)) 1 tab Q6H PRN PO MODERATE PAIN LEVEL 4-6; Start 12/17/16 at 16:30 Morphine Sulfate (morphine) 2 mg Q4H PRN IV SEVERE PAIN LEVEL 7-10 Last administered on 12/18/16 17:50; Admin Dose 2 MG; Start 12/17/16 at 16:30 Docusate Sodium (Colace) 100 mg Q12H PRN PO CONSTIPATION; Start 12/17/16 at 16: 30 Zolpidem Tartrate (Ambien) 5 mg QHS PRN PO SLEEP Last administered on 21:01; Admin Dose 5 MG; Start 12/17/16 at 16:30 Famotidine (Pepcid) 20 mg Q12 PO Last administered on 12/20/16 08:46; Admin Dose 20 MG; Start 12/17/16 at 21:00 Aspirin (Halfprin) 81 mg DAILY PO Last administered on 12/20/16 08:45; Admin Dose 81 MG; Start 12/18/16 at 09:00 Ticagrelor (Brilinta) 90 mg BID PO Last administered on 12/20/16 08:46; Admin Dose 90 MG; Start 12/18/16 at 21:00 Al Hydrox/Mg Hydrox/Simethicone (Mag-Al Plus) 30 ml Q4H PRN PO GASTROINTESTINAL UPSET; Start 12/18/16 at 16:30 Ondansetron HCl (Zofran Inj) 4 mg Q4H PRN IV NAUSEA AND/OR VOMITING; Start 03/27 at 16:30 Nitroglycerin (Nitroglycerin (Sl Tab) 0.4 Mg) 1 tab Q5M PRN SL ANGINA Last administered on 12/18/16 18:47; Admin Dose 1 TAB; Start 12/18/16 at 18:30 Labetalol HCl (Labetalol) 10 mg Q6H PRN IV sbp>150; Start 12/18/16 at 19:00 Atorvastatin Calcium (Lipitor) 40 mg HS PO ; Start 12/20/16 at 21:00; Status UNV Lisinopril (Zestril) 5 mg DAILY PO ; Start 12/21/16 at 09:00; Status UNV Metoprolol Succinate (Toprol Xl) 25 mg DAILY PO ; Start 12/21/16 at 09:00; Status UNV Xavier Taylor DO Dec 20, 2016 11:12
[2016-12-20] MEDS ORDERED: ASPI-664 PO (13:28)
[2016-12-20] MEDS ORDERED: ATOR40TA68 PO (13:28)
[2016-12-20] MEDS ORDERED: TICA90TA PO (13:28)
[2016-12-20] MEDS ORDERED: METO25TA7 PO (13:28)
[2016-12-20] MEDS ORDERED: LISI-313 PO (13:28)
--- NOTE | 2016-12-20 13:41 | DS ---
Date/Time of Note Date/Time of Note DATE: 12/20/16 TIME: 13:28 Discharge Summary Admission/Discharge Info Admit Date/Time Dec 18, 2016 at 12:40 Discharge Date/Time Discharge Diagnosis 1. Non-ST elevation [place] status post PCI with drug-eluting stenting to obtuse marginal, stable, follow up with cardiology 2. Hypertension, controlled Patient Condition: Stable Consults Xavier Taylor MD-cardiology Date/Time of Note Date/Time of Note DATE: 12/18/16 TIME: 16:11 Operative Report Procedure Date: Dec 18, 2016 Preoperative Diagnosis Myocardial infarction Postoperative Diagnosis Obstructive coronary artery disease Operation Performed Left heart catheterization Right and left coronary angiogram Interpretation and supervision of right left coronary angiogram Left ventricular pressure measurements PCI of the obtuse marginal with the placement of a 2.75 x 28 mm Synergy drug- eluting stent, postdilated to 3.1 mm Conscious sedation Right radial artery approach Estimated Blood Loss: minimal Complications: None Operative\Procedure Findings Hemodynamics LV pressure 178 with EDP of 20 Aortic blood pressure 183/87 Left main is a large caliber vessel with no significant disease. Circumflex a medium to large caliber vessel and codominant with a medium caliber first obtuse marginal with no significant disease, OM 2 and on 3 are small caliber vessels with no significant disease, OM 3 is a medium caliber vessel with ostial to mid diffuse stenosis worse being 90%, the AV groove circumflex with no significant disease. LAD is a medium caliber vessel with a mid 30% stenosis at the bifurcation of the diagonal RCA is a medium caliber vessel with proximal 20% stenosis and distal 20% stenosis. Procedure Description The patient was brought to the [facility] after informed consent. Right radial access was obtained. A 5/6 Finnish sheath was placed in the right radial artery. A 6 Finnish Condon catheter was used to engage the left main and angiogram was performed. We were unable to engage the RCA so we switched out for a Tyler right 6 Finnish catheter. We onto the left ventricle and pressure measurements were obtained as well as pullback. Next engage the RCA and antrum was performed. There is severe stenosis noted in the obtuse marginal so we proceeded with intervention within the same setting. Angiomax was used for anticoagulation. With significant difficulty, the lesion in the fourth obtuse marginal was crossed with a run through wire. The area was predilated and stented with a 2.75 x 28 mm Synergy drug-eluting stent. This was postdilated with a 3.0 noncompliant balloon at high pressure. There was an excellent angiographic result with VEE-3 flow with no evidence of dissection with less than 10% residual stenosis. Patient was chest pain-free by the end of the procedure. Xavier Taylor DO Dec 18, 2016 16:18 <Electronically signed by Xavier Taylor DO> 12/18/16 1618 Procedures coronary angiography with OM3 stent Hospital Course This is a 61-year-old male who presents with chest discomfort occurred yesterday after exercising. Symptoms were exacerbated by his physical activity. Discomfort was pressure-like and continued post exercise. He is unsure if he felt shortness of breath. He denied any nausea. Once he came to the emergency room and given nitroglycerin and aspirin, his pain resolved. He has had no further chest discomfort since then. Denies any abdominal pain, nausea, dizziness or lightheadedness. Troponin was up to 8.46. ECG and echocardiography are unremarkable. Coronary angiography revealed 90% OM3 lesion that is stented. Patient will follow up with Dr. Taylor in 1-2 weeks. Home Meds Active Scripts Aspirin* (Aspirin* EC) 81 Mg Tablet., 81 MG PO DAILY for 30 Days Prov:BRYCE PEARSON MD 12/20/16 Metoprolol Succinate* (Toprol XL*) 25 Mg Tab.sr.24h, 25 MG PO DAILY for 30 Days Prov:BRYCE PEARSON MD 12/20/16 Lisinopril* (Lisinopril*) 5 Mg Tablet, 5 MG PO DAILY for 30 Days, TAB Prov:BRYCE PEARSON MD 12/20/16 Atorvastatin* (Atorvastatin*) 40 Mg Tablet, 40 MG PO DAILY@21 for 30 Days, TAB Prov:BRYCE PEARSON MD 12/20/16 Ticagrelor* (Brilinta*) 90 Mg Tablet, 90 MG PO BID for 30 Days, TAB Prov:BRYCE PEARSON MD 12/20/16 Reported Medications Indomethacin* (Indocin*) 25 Mg Capsule, 25 MG PO BID, CAP 12/17/16 Methocarbamol* (Methocarbamol*) 750 Mg Tablet, 750 MG PO BID Y for MUSCLE SPASMS , TAB 12/17/16 Primary Care Provider Care Physician No Primary Pending Labs Laboratory Tests Test 12/19/16 15:30 Creatine Kinase 116IU/L (23-200) Creatinine Kinase MB (Mass) 6.13ng/ml (0.0-2.4) BRYCE PEARSON MD Dec 20, 2016 13:39
[2016-12-20] MEDS ORDERED: ATORVASTATIN 40 MG TAB PO SCH (21:00)
[2016-12-21] MEDS ORDERED: LISINOPRIL 5 MG TAB PO SCH (09:00)
[2016-12-21] MEDS ORDERED: METOPROLOL (XL) 25 MG TAB PO SCH (09:00)
== END 2016-12-20 15:33 | disposition home or self-care (01) | DRG 247 ==
LOC: E/R 11:51 → MS4 14:50 → OBSVTOIN 12-18 12:40 → ICU 12-18 20:54 → MS4 12-19 12:05
PROVIDERS: ADMIT Hospitalist; ATTEND Hospitalist
PROC: B211YZZ Fluoroscopy of Multiple Coronary Arteries using Other Contrast (ICD-10-PCS; 2016-12-18)
PROC: 027034Z Dilation of Coronary Artery, One Artery with Drug-eluting Intraluminal Device, Percutaneous Approach (ICD-10-PCS; principal; 2016-12-18 16:30)
PROC: 4A023N7 Measurement of Cardiac Sampling and Pressure, Left Heart, Percutaneous Approach (ICD-10-PCS; 2016-12-18 16:30)
DX: I21.4 Non-ST elevation (NSTEMI) myocardial infarction (principal); I10 Essential (primary) hypertension; I45.10 Unspecified right bundle-branch block; I34.1 Nonrheumatic mitral (valve) prolapse; D72.829 Elevated white blood cell count, unspecified; F17.210 Nicotine dependence, cigarettes, uncomplicated; F12.90 Cannabis use, unspecified, uncomplicated; I25.10 Atherosclerotic heart disease of native coronary artery without angina pectoris; E78.5 Hyperlipidemia, unspecified
CPT/HCPCS: 36415; 71010; 80048; 80053; 80061; 82550; 82553; 83036; 83690; 83735; 84100; 84443; 84484; 85025; 85610; 85730; 93005; 93306; 93454; G0378; C1725; C1769; C1874; C1887; C9600; J0360; J0583; J1644; J1650; J2250; J2270; J3010; J7030; J7040; Q9967